=== PATIENT | male | born 1950 | race African-American/Black ===

== ENCOUNTER 2021-10-30 11:51 | Emergency (ER) | payer MEDICARE ==
[~2021-10-30] VITALS: Ht 167.6 cm; Wt 90.0 kg
[~2021-10-30 11:51] MED LIST: ASPIRIN E.C. 8181 MG PO; CARDI-OMEGA1000 MG PO; HCTZ 25MG TAB25 MG PO; LIPITOR20 MG PO; LOTREL 10 MG-401 CAP PO; TOPROL XL100 MG PO; ZYLOPRIM 300MG300 MG PO
[2021-10-30 12:07] VITALS: TEMP 97.9
[2021-10-30 14:20] LABS: BASO % 0.4 % (0.0-2.0); EOS # 0.1 K/mm3 (0.0-0.7); GRAN # 2.3 K/mm3 (1.4-6.5); GRAN % 44.7 % (42.2-75.2); HEMATOCRIT 39.2 % (42.0-52.0); HEMOGLOBIN 12.8 g/dl (13.5-18.0); LYMPH # 2.3 K/mm3 (1.2-3.4); LYMPH % 44.3 % (20.0-51.0); MEAN CELL VOLUME 95 fl (80.0-100.0); MEAN CORPUSCULAR HEMOGLOBIN 31 pg (27-31); MEAN CORPUSCULAR HGB CONC 33 g/dl (33.0-37.0); MEAN PLATELET VOLUME 8.8 fl (7.4-10.4); MONO # 0.5 K/mm3 (0.1-0.6); MONO % 9.4 % (1.7-9.3); PLATELET COUNT 406 K/mm3 (130-400); RED BLOOD COUNT 4.11 M/mm3 (4.20-5.60); REDCELL DISTRIBUTION WIDTH-CV 12.5 % (11.5-14.5)
[2021-10-30 14:32] LABS: ALANINE AMINOTRANSFERASE 26 U/L (0-55); ALBUMIN 3.9 gm/dL (3.4-4.8); ALKALINE PHOSPHATASE 65 U/L (40-150); ANION GAP 8 mmol/L (7-16); AST,SGOT 35 U/L (5-34); BILIRUBIN,TOTAL 0.5 mg/dL (0.2-1.2); BLOOD UREA NITROGEN 19 mg/dL (8-26); CARBON DIOXIDE 24 mmol/L (23-31); CHLORIDE 104 mmol/L (98-107); CREATININE, serum 1.76 mg/dL (0.72-1.25); GLUCOSE 92 mg/dL (70-99); POTASSIUM 4.9 mmol/L (3.5-4.5); SODIUM 136 mmol/L (136-145); TOTAL PROTEIN 7.7 gm/dL (6.2-8.1)
[2021-10-30 14:48] LABS: TROPONIN-I < 0.010 ng/mL (0.00-0.033)
[2021-10-30 15:10] VITALS: BP 150/72; PULSE 50
== END 2021-10-30 15:20 | disposition home or self-care (01) ==
LOC: COL.ER 11:51
PROVIDERS: Personal Emergency Response Attendant
DX: M79.89 Other specified soft tissue disorders (principal); R07.9 Chest pain, unspecified; I10 Essential (primary) hypertension; Z79.899 Other long term (current) drug therapy